=== PATIENT | male | born 1965 | race Caucasian/White ===

== ENCOUNTER 2018-04-05 08:31 | Inpatient (IN) | payer SELFPAY ==
[2018-04-05] VITALS (7 sets, daily range): BP systolic 134–188; BP diastolic 56–122
[~2018-04-05] VITALS: Ht 167.6 cm; Wt 131.5 kg
--- NOTE | 2018-04-05 08:51 | PHYS DOC ---
Adult General Chief Complaint Chief Complaint: HEADACHE HPI HPI Patient is a 52 year old male presents the ED complaining of headache 2 months. States he has had a constant headache the left side of his head for the last 2 months. States he did taking Excedrin Migraine at home without relief. Patient states he has no past medical history but has been told he has high blood pressure. States he attributes it to white coat syndrome. Patient is a half a pack-a-day smoker. Describes the pain as sharp. Rates the pain as 8 out of 10. Associated symptoms of chest tightness lasting minutes over the last couple of weeks. No chest pain today. Denies worst headache of life, fever, neck pain, photophobia, shortness of breath or nausea/vomiting. Review of Systems Review of Systems Constitutional: Denies fever or chills [] Eyes: Denies change in visual acuity, redness, or eye pain [] HENT: Denies nasal congestion or sore throat [] Respiratory: Denies cough or shortness of breath [] Cardiovascular: No additional information not addressed in HPI [] GI: Denies abdominal pain, nausea, vomiting, bloody stools or diarrhea [] : Denies dysuria or hematuria [] Musculoskeletal: Denies back pain or joint pain [] Integument: Denies rash or skin lesions [] Neurologic: Complains of headache. Denies focal weakness or sensory changes [] All other systems were reviewed and found to be within normal limits, except as documented in this note. Current Medications Current Medications Current Medications Medications (Trade) Dose Ordered Sig/[facility] Start Time Stop Time Status Last Admin Dose Admin Morphine Sulfate (Morphine Sulfate) 2 mg 1X ONCE 04/05/18 10:00 04/05/18 10:49 DC 04/05/18 10:50 2 MG Ondansetron HCl (Zofran) 4 mg 1X ONCE 04/05/18 10:00 04/05/18 10:49 DC 04/05/18 10:50 4 MG Physical Exam Physical Exam Constitutional: Well developed, well nourished, no acute distress, non-toxic appearance. [] HENT: Normocephalic, atraumatic, bilateral external ears normal, oropharynx moist, no oral exudates, nose normal. [] Eyes: PERRLA, EOMI, conjunctiva normal, no discharge. [] Neck: Normal range of motion, no tenderness, supple, no stridor. [] Cardiovascular:Heart rate regular rhythm, no murmur [] Lungs & Thorax: Bilateral breath sounds clear to auscultation [] Abdomen: Bowel sounds normal, soft, no tenderness, no masses, no pulsatile masses. [] Skin: Warm, dry, no erythema, no rash. [] Back: No tenderness, no CVA tenderness. [] Extremities: No tenderness, no cyanosis, no clubbing, ROM intact, no edema. [] Neurologic: Alert and oriented X 3, normal motor function, normal sensory function, no focal deficits noted. [] Psychologic: Affect normal, judgement normal, mood normal. [] Current Patient Data Vital Signs Vital Signs Date Time Temp Pulse Resp B/P (MAP) Pulse Ox O2 Delivery O2 Flow Rate FiO2 04/05/18 09:54 84 16 95 04/05/18 08:42 98.6 207/117 (147) Room Air 98.6 Lab Values Laboratory Tests Test 04/05/18 09:05 04/05/18 09:20 04/05/18 09:25 White Blood Count 9.2 x10^3/uL (4.0-11.0) Red Blood Count 4.52 x10^6/uL (4.30-5.70) Hemoglobin 14.8 g/dL (13.0-17.5) Hematocrit 42.2 % (39.0-53.0) Mean Corpuscular Volume 93 fL (79-100) Mean Corpuscular Hemoglobin 33 pg (25-35) Mean Corpuscular Hemoglobin Concent 35 g/dL (31-37) Red Cell Distribution Width 13.4 % (11.5-14.5) Platelet Count 239 x10^3/uL (140-400) Neutrophils (%) (Auto) 60 % (31-73) Lymphocytes (%) (Auto) 29 % (24-48) Monocytes (%) (Auto) 8 % (0-9) Eosinophils (%) (Auto) 2 % (0-3) Basophils (%) (Auto) 1 % (0-3) Neutrophils # (Auto) 5.5 x10^3uL (1.8-7.7) Lymphocytes # (Auto) 2.7 x10^3/uL (1.0-4.8) Monocytes # (Auto) 0.7 x10^3/uL (0.0-1.1) Eosinophils # (Auto) 0.2 x10^3/uL (0.0-0.7) Basophils # (Auto) 0.1 x10^3/uL (0.0-0.2) Sodium Level 137 mmol/L (136-145) Potassium Level 4.2 mmol/L (3.5-5.1) Chloride Level 105 mmol/L (98-107) Carbon Dioxide Level 27 mmol/L (21-32) Anion Gap 5 (6-14) L Blood Urea Nitrogen 15 mg/dL (8-26) Creatinine 0.9 mg/dL (0.7-1.3) Estimated GFR (Cockcroft-Gault) 89.0 BUN/Creatinine Ratio 17 (6-20) Glucose Level 101 mg/dL (70-99) H Calcium Level 8.3 mg/dL (8.5-10.1) L Total Bilirubin 0.4 mg/dL (0.2-1.0) Aspartate Amino Transferase (AST) 22 U/L (15-37) Alanine Aminotransferase (ALT) 36 U/L (16-63) Alkaline Phosphatase 79 U/L (46-116) Troponin I Quantitative < 0.017 ng/mL (0.000-0.055) Total Protein 7.1 g/dL (6.4-8.2) Albumin 3.4 g/dL (3.4-5.0) Albumin/Globulin Ratio 0.9 (1.0-1.7) L Urine Opiates Screen Neg (NEG) Urine Methadone Screen Neg (NEG) Urine Barbiturates Neg (NEG) Urine Phencyclidine Screen Neg (NEG) Urine Amphetamine/Methamphetamine Neg (NEG) Urine Benzodiazepines Screen Neg (NEG) Urine Cocaine Screen Neg (NEG) Urine Cannabinoids Screen Neg (NEG) Urine Ethyl Alcohol Neg (NEG) Urine Collection Type Unknown Urine Color Yellow Urine Clarity Clear Urine pH 7.0 Urine Specific [place] 1.025 Urine Protein Negative mg/dL (NEG-TRACE) Urine Glucose (UA) Negative mg/dL (NEG) Urine Ketones (Stick) Negative mg/dL (NEG) Urine Blood Negative (NEG) Urine Nitrite Negative (NEG) Urine Bilirubin Negative (NEG) Urine Urobilinogen Dipstick 1.0 mg/dL (0.2 mg/dL) Urine Leukocyte Esterase Trace (NEG) Urine RBC 1-2 /HPF (0-2) Urine WBC 1-4 /HPF (0-4) Urine Squamous Epithelial Cells Mod /LPF Urine Bacteria Few /HPF (0-FEW) Urine Mucus Marked /LPF Laboratory Tests 04/05/18 09:05 Laboratory Tests 04/05/18 09:05 EKG EKG []EKG shows NSR at 89 BPM. No STEMI. Radiology/Procedures Radiology/Procedures []PROCEDURE: CT HEAD WO CONTRAST CT of the head without contrast, 04/05/2018: HISTORY: Headache The ventricles are within normal limits in size. There is no shift of the midline structures. There is no evidence of acute intracranial hemorrhage or mass effect. Mild mucosal thickening is noted in the left maxillary sinus. No free fluid is evident in the paranasal sinuses. There is partial opacification of the left mastoid air cells, presumably on an inflammatory basis. IMPRESSION: 1. No acute intracranial abnormality is detected. 2. Evidence of left maxillary and mastoid sinusitis. Course & Med Decision Making Course & Med Decision Making Pertinent Labs and Imaging studies reviewed. (See chart for details) Patients BP is 200s over 100s in the ED. Patient does not take any BP medications. Headache possibly due to uncontrolled HTN. States episodes over the last week of chest tightness. No symptoms at this time. []Discussed case with hospitalist, Dr. Logan. Agrees to admission and further management of patient. Patient stable for admission. Staff Physician Addendum: I was working in the ER during the course of this patient's visit. I was available for consultation as needed, but I was not directly involved in the care of this patient. Dragon Disclaimer Dragon Disclaimer This electronic medical record was generated, in whole or in part, using a voice recognition dictation system. Departure Departure Impression: Primary Impression: Hypertensive urgency Additional Impressions: Headache Chest tightness Disposition: ADMITTED INPATIENT Admitting Physician: Xie. Hernández Condition: STABLE Scripts Aspirin (ASPIRIN EC) 81 Mg Tablet. 81 MG PO DAILYWBKFT for 30 Days, #30 TAB.SR Prov: CHANA LOGAN MD 04/07/18 Lisinopril (LISINOPRIL) 40 Mg Tablet 40 MG PO DAILY for 30 Days, #30 TAB Prov: CHANA LOGAN MD 04/07/18 Amlodipine Besylate (AMLODIPINE BESYLATE) 10 Mg Tablet 10 MG PO DAILY for 30 Days, #30 TAB Prov: CHANA LOGAN MD 04/07/18 Hydralazine Hcl (HYDRALAZINE HCL) 50 Mg Tablet 50 MG PO TID for 30 Days, #90 TAB Prov: CHANA LOGAN MD 04/07/18 Problem Qualifiers DENY GOMEZ Apr 05, 2018 08:50 MICK PATTON MD Apr 07, 2018 20:50
--- NOTE | 2018-04-05 09:00 | EKG ---
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
[2018-04-05 09:15] LABS: BASO # 0.1 x10^3/uL (0.0-0.2); BASO % 1 % (0-3); EOS # 0.2 x10^3/uL (0.0-0.7); EOS % 2 % (0-3); HEMATOCRIT 42.2 % (39.0-53.0); HEMOGLOBIN 14.8 g/dL (13.0-17.5); LYMPH # 2.7 x10^3/uL (1.0-4.8); LYMPH % 29 % (24-48); MEAN CORPUSCULAR HEMOGLOBIN 33 pg (25-35); MEAN CORPUSCULAR HGB CONC 35 g/dL (31-37); MEAN CORPUSCULAR VOLUME 93 fL (79-100); MONO # 0.7 x10^3/uL (0.0-1.1); MONO % 8 % (0-9); NEUT # 5.5 x10^3uL (1.8-7.7); NEUT % 60 % (31-73); PLATELET COUNT 239 x10^3/uL (140-400); RED BLOOD COUNT 4.52 x10^6/uL (4.30-5.70); RED CELL DISTRIBUTION WIDTH 13.4 % (11.5-14.5); WHITE BLOOD COUNT 9.2 x10^3/uL (4.0-11.0)
--- NOTE | 2018-04-05 09:27 | RAD ---
Portable chest, 04/05/2018: HISTORY: Shortness of breath The heart appears to be within normal limits in size for the AP technique. There is mild tortuosity of the thoracic aorta. The pulmonary vascularity is normal. No pulmonary infiltrate is seen. There is no evidence of pleural fluid. IMPRESSION: No acute cardiopulmonary abnormality is detected. Electronically signed by: Radu Epps MD (04/05/2018 9:24 AM) [facility]
[2018-04-05 09:31] LABS: CALCIUM 8.3 mg/dL (8.5-10.1); CREATININE 0.9 mg/dL (0.7-1.3); POTASSIUM 4.2 mmol/L (3.5-5.1)
[2018-04-05 09:36] LABS: BILIRUBIN,URINE NEGATIVE (NEG); CLARITY,URINE CLEAR; COLOR,URINE YELLOW; NITRITE,URINE NEGATIVE (NEG); PROTEIN,URINE NEGATIVE (NEG-TRACE)
[2018-04-05 09:36] LABS: ALBUMIN 3.4 g/dL (3.4-5.0); ALBUMIN/GLOBULIN RATIO 0.9 (1.0-1.7); TOTAL BILIRUBIN 0.4 mg/dL (0.2-1.0); TOTAL PROTEIN 7.1 g/dL (6.4-8.2)
--- NOTE | 2018-04-05 09:37 | RAD ---
CT of the head without contrast, 04/05/2018: HISTORY: Headache The ventricles are within normal limits in size. There is no shift of the midline structures. There is no evidence of acute intracranial hemorrhage or mass effect. Mild mucosal thickening is noted in the left maxillary sinus. No free fluid is evident in the paranasal sinuses. There is partial opacification of the left mastoid air cells, presumably on an inflammatory basis. IMPRESSION: 1. No acute intracranial abnormality is detected. 2. Evidence of left maxillary and mastoid sinusitis. Electronically signed by: Radu Epps MD (04/05/2018 9:33 AM) [facility]
[2018-04-05 09:44] LABS: SQUAMOUS EPITHELIAL CELL,UR MOD /LPF
[2018-04-05 09:46] LABS: BACTERIA,URINE FEW /HPF (0-FEW)
[2018-04-05] MEDS ORDERED: MORPHINE SULFATE 2 MG/ML VIAL. IV ONE (10:00)
[2018-04-05] MEDS ORDERED: ONDANSETRON PF 4 MG/2 ML VIAL. IV ONE (10:00)
[2018-04-05] MEDS ORDERED: ACETAMINOPHEN 325 MG TABLET. PO PRN ×2 (10:15→14:45)
[2018-04-05] MEDS ORDERED: ONDANSETRON PF 4 MG/2 ML VIAL. IV PRN ×2 (10:15→14:45)
[2018-04-05] MEDS ORDERED: MORPHINE SULFATE 2 MG/ML VIAL. IV PRN (10:15)
[2018-04-05] MEDS ORDERED: LABETALOL 20 MG/4 ML DISP.SYRIN. IVP ONE (11:00)
--- NOTE | 2018-04-05 14:38 | PDOC1 ---
History and Physical Date of Admission Date of Admission 04/05/18 Identification/Chief Complaint Chief Complaint headache, chest pain Source Source: Chart review, Patient History of Present Illness History of Present Illness Patient is a 52 year old male presents the ED complaining of headache 2 months. 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 He said the headache is only one spot on head, better with shower. The headache today feels like tightness. . States he did taking Excedrin Migraine at home without relief. PT HAS HTN history, but not following PCP and not taking HTN meds. he also has chest pain today during his work, substernal, tightness, with some sob, no N/V or diaphoresis, constant, 4/10. now pain free seen in ER. no tenderness. Patient is a half a pack-a-day smoker. EKG ok, trop neg. BP >200/110 in ER. Past Medical History Cardiovascular: HTN Past Surgical History Past Surgical History: No pertinent history Family History Family History STROKE Current Problem List Problem List Problems Medical Problems: (1) Headache Status: Acute (2) Hypertensive urgency Status: Acute Current Medications Current Medications Current Medications Medications (Trade) Dose Ordered Sig/Kaela Start Time Stop Time Status Last Admin Dose Admin Acetaminophen (Tylenol) 650 mg PRN Q4HRS PRN 04/05/18 10:15 04/06/18 10:14 Labetalol HCl (Normodyne Iv Push) 10 mg 1X ONCE 04/05/18 11:00 04/05/18 11:01 DC 04/05/18 11:19 10 MG Morphine Sulfate (Morphine Sulfate) 2 mg PRN Q2HR PRN 04/05/18 10:15 04/06/18 10:14 Ondansetron HCl (Zofran) 4 mg PRN Q8HRS PRN 04/05/18 10:15 04/06/18 10:14 Allergies Allergies Allergies Coded Allergies Type Severity Reaction Last Updated Verified Penicillins Allergy Mild rash 04/05/18 Yes ROS Review of System CONSTITUTIONAL: No fever or chills EYES: No recent changes SKIN: No rash or itching CARDIOVASCULAR: No chest pain, syncope, palpitations, or edema RESPIRATORY: No SOB or cough GASTROINTESTINAL: No nausea, vomiting or abdominal pain NEUROLOGICAL: No headaches or weakness ENDOCRINE: No cold or heat intolerance GENITOURINARY: No urgency or frequency of urination MUSCULOSKELETAL: No back pain or joint pain LYMPHATICS: No enlarged lymph nodes PSYCHIATRIC: No anxiety or depression Physical Exam Physical Exam GEN.: No apparent distress. Alert and oriented. HEENT: Head is normocephalic, atraumatic NECK: Supple. LUNGS: Clear to auscultation. HEART: RRR, S1, S2 present. Peripheral pulses intact ABDOMEN: Soft, nontender. Positive bowel sounds. EXTREMITIES: Without any cyanosis. NEUROLOGIC: Normal speech, normal tone PSYCHIATRIC: Normal affect, normal mood. SKIN: No ulcerations Vitals Vitals Vital Signs Date Time Temp Pulse Resp B/P (MAP) Pulse Ox O2 Delivery O2 Flow Rate FiO2 04/05/18 13:44 78 20 154/102 (119) Room Air 04/05/18 12:08 97.7 95 97.7 Labs Labs Laboratory Tests Test 04/05/18 09:05 04/05/18 09:25 White Blood Count 9.2 x10^3/uL (4.0-11.0) Red Blood Count 4.52 x10^6/uL (4.30-5.70) Hemoglobin 14.8 g/dL (13.0-17.5) Hematocrit 42.2 % (39.0-53.0) Mean Corpuscular Volume 93 fL (79-100) Mean Corpuscular Hemoglobin 33 pg (25-35) Mean Corpuscular Hemoglobin Concent 35 g/dL (31-37) Red Cell Distribution Width 13.4 % (11.5-14.5) Platelet Count 239 x10^3/uL (140-400) Neutrophils (%) (Auto) 60 % (31-73) Lymphocytes (%) (Auto) 29 % (24-48) Monocytes (%) (Auto) 8 % (0-9) Eosinophils (%) (Auto) 2 % (0-3) Basophils (%) (Auto) 1 % (0-3) Neutrophils # (Auto) 5.5 x10^3uL (1.8-7.7) Lymphocytes # (Auto) 2.7 x10^3/uL (1.0-4.8) Monocytes # (Auto) 0.7 x10^3/uL (0.0-1.1) Eosinophils # (Auto) 0.2 x10^3/uL (0.0-0.7) Basophils # (Auto) 0.1 x10^3/uL (0.0-0.2) Sodium Level 137 mmol/L (136-145) Potassium Level 4.2 mmol/L (3.5-5.1) Chloride Level 105 mmol/L (98-107) Carbon Dioxide Level 27 mmol/L (21-32) Anion Gap 5 (6-14) Blood Urea Nitrogen 15 mg/dL (8-26) Creatinine 0.9 mg/dL (0.7-1.3) Estimated GFR (Cockcroft-Gault) 89.0 BUN/Creatinine Ratio 17 (6-20) Glucose Level 101 mg/dL (70-99) Calcium Level 8.3 mg/dL (8.5-10.1) Total Bilirubin 0.4 mg/dL (0.2-1.0) Aspartate Amino Transf (AST/SGOT) 22 U/L (15-37) Alanine Aminotransferase (ALT/SGPT) 36 U/L (16-63) Alkaline Phosphatase 79 U/L (46-116) Troponin I Quantitative < 0.017 ng/mL (0.000-0.055) Total Protein 7.1 g/dL (6.4-8.2) Albumin 3.4 g/dL (3.4-5.0) Albumin/Globulin Ratio 0.9 (1.0-1.7) Urine Collection Type Unknown Urine Color Yellow Urine Clarity Clear Urine pH 7.0 Urine Specific [place] 1.025 Urine Protein Negative mg/dL (NEG-TRACE) Urine Glucose (UA) Negative mg/dL (NEG) Urine Ketones (Stick) Negative mg/dL (NEG) Urine Blood Negative (NEG) Urine Nitrite Negative (NEG) Urine Bilirubin Negative (NEG) Urine Urobilinogen Dipstick 1.0 mg/dL (0.2 mg/dL) Urine Leukocyte Esterase Trace (NEG) Urine RBC 1-2 /HPF (0-2) Urine WBC 1-4 /HPF (0-4) Urine Squamous Epithelial Cells Mod /LPF Urine Bacteria Few /HPF (0-FEW) Urine Mucus Marked /LPF Laboratory Tests Test 04/05/18 09:05 04/05/18 09:25 White Blood Count 9.2 x10^3/uL (4.0-11.0) Red Blood Count 4.52 x10^6/uL (4.30-5.70) Hemoglobin 14.8 g/dL (13.0-17.5) Hematocrit 42.2 % (39.0-53.0) Mean Corpuscular Volume 93 fL (79-100) Mean Corpuscular Hemoglobin 33 pg (25-35) Mean Corpuscular Hemoglobin Concent 35 g/dL (31-37) Red Cell Distribution Width 13.4 % (11.5-14.5) Platelet Count 239 x10^3/uL (140-400) Neutrophils (%) (Auto) 60 % (31-73) Lymphocytes (%) (Auto) 29 % (24-48) Monocytes (%) (Auto) 8 % (0-9) Eosinophils (%) (Auto) 2 % (0-3) Basophils (%) (Auto) 1 % (0-3) Neutrophils # (Auto) 5.5 x10^3uL (1.8-7.7) Lymphocytes # (Auto) 2.7 x10^3/uL (1.0-4.8) Monocytes # (Auto) 0.7 x10^3/uL (0.0-1.1) Eosinophils # (Auto) 0.2 x10^3/uL (0.0-0.7) Basophils # (Auto) 0.1 x10^3/uL (0.0-0.2) Sodium Level 137 mmol/L (136-145) Potassium Level 4.2 mmol/L (3.5-5.1) Chloride Level 105 mmol/L (98-107) Carbon Dioxide Level 27 mmol/L (21-32) Anion Gap 5 (6-14) Blood Urea Nitrogen 15 mg/dL (8-26) Creatinine 0.9 mg/dL (0.7-1.3) Estimated GFR (Cockcroft-Gault) 89.0 BUN/Creatinine Ratio 17 (6-20) Glucose Level 101 mg/dL (70-99) Calcium Level 8.3 mg/dL (8.5-10.1) Total Bilirubin 0.4 mg/dL (0.2-1.0) Aspartate Amino Transf (AST/SGOT) 22 U/L (15-37) Alanine Aminotransferase (ALT/SGPT) 36 U/L (16-63) Alkaline Phosphatase 79 U/L (46-116) Troponin I Quantitative < 0.017 ng/mL (0.000-0.055) Total Protein 7.1 g/dL (6.4-8.2) Albumin 3.4 g/dL (3.4-5.0) Albumin/Globulin Ratio 0.9 (1.0-1.7) Urine Collection Type Unknown Urine Color Yellow Urine Clarity Clear Urine pH 7.0 Urine Specific [place] 1.025 Urine Protein Negative mg/dL (NEG-TRACE) Urine Glucose (UA) Negative mg/dL (NEG) Urine Ketones (Stick) Negative mg/dL (NEG) Urine Blood Negative (NEG) Urine Nitrite Negative (NEG) Urine Bilirubin Negative (NEG) Urine Urobilinogen Dipstick 1.0 mg/dL (0.2 mg/dL) Urine Leukocyte Esterase Trace (NEG) Urine RBC 1-2 /HPF (0-2) Urine WBC 1-4 /HPF (0-4) Urine Squamous Epithelial Cells Mod /LPF Urine Bacteria Few /HPF (0-FEW) Urine Mucus Marked /LPF VTE Prophylaxis Ordered VTE Prophylaxis Devices: Yes VTE Pharmacological Prophylaxi: Yes Assessment/Plan Assessment/Plan Headache HTN urgency tobaccoism plan: head ct neg card consult cycle CE, add amlodipine, lisinopril labetolol prn check lipid panel, TSH , echo pt not interested in nicotine patch, willing to try to quit smoking dvt ppx CHANA LOGAN MD Apr 05, 2018 14:38
[2018-04-05] MEDS ORDERED: LABETALOL 20 MG/4 ML DISP.SYRIN. IVP PRN ×2 (14:45→15:45)
[2018-04-05] MEDS ORDERED: DOCUSATE SODIUM 100 MG CAPSULE. PO PRN (14:45)
--- NOTE | 2018-04-05 15:02 | PDOC2 ---
LORRIE HUFFMAN DIMENSIONAL INTEGRATION ENGINEER 04/05/18 1502: CARDIAC CONSULT DATE OF CONSULT Date of Consult DATE: 04/05/18 TIME: 14:55 REASON FOR CONSULT Reason for Consult: Chest pain REFERRING PHYSICIAN Referring Physician: Edwina SOURCE Source: Chart review, Patient HISTORY OF PRESENT ILLNESS HISTORY OF PRESENT ILLNESS This is a pleasant 52 yo male admitted for complains of chest pain and GIRALDO. Reports that he was having some nausea and midchest pressure last Tuesday. And again this happened today on his way to work. Reports he was driving when he felt mid chest pressure and felt SOA and like he could not breath deep. While at work trying to write his name on the board at work, he started having diaphoresis and GIRALDO. He said it felt like tightening around his forehead, dull achy. He has been having this GIRALDO on and off almost everyday and sometimes get relieved by shower with just that water pressure to the top of his head. There was no associated visual or auditory changes nor unilateral weakness or dysarthria but while at work when he felt diaphoretic he felt weird like confuse at some point and could not answer the question being asked but understood it. Upon admission he was then noted with high BP. He has hx of high BP as well as possible white coat syndrome. He was given norvasc remotely but decided that he does not need it. He also suffers from insomnia just now transitioning to day shift but does have episodes of PND sleeping about 2-3 hours at a time, feels tired most of the day prompting extra caffeinated beverage consumption. He does take advil for his GIRALDO as needed twice a day. Denies any frequent heartburn, anxiety, depression, falls ,injury, DM2, CAD, arrhythmias or VTE. No prior hx of CVA, TIA nor seizures, aneurysm. He does not exercise and does consume significant amount of processed food. PAST MEDICAL HISTORY Cardiovascular: HTN Pulmonary: No pertinent hx CENTRAL NERVOUS SYSTEM: Other (No pertinent history) GI: GERD Heme/Onc: No pertinent hx Hepatobiliary: No pertinent hx Psych: No pertinent hx Musculoskeletal: Osteoarthritis, Other (left MCL injury without surgery) Rheumatologic: No pertinent hx Infectious disease: No pertinent hx ENT: No pertinent hx Renal/: No pertinent hx Endocrine: No pertinent hx Dermatology: No pertinent hx PAST SURGICAL HISTORY Past Surgical History: Other (right thigh cyst removal. ) FAMILY HISTORY Family History: Diabetes (mother), Stroke (grandparents) SOCIAL HISTORY Smoke: <1 pack per day (>25yrs) ALCOHOL: none Drugs: None Lives: Alone CURRENT MEDICATIONS CURRENT MEDICATIONS Current Medications Medications (Trade) Dose Ordered Sig/Kaela Route PRN Reason Start Time Stop Time Status Last Admin Dose Admin Morphine Sulfate (Morphine Sulfate) 2 mg 1X ONCE IV 04/05/18 10:00 04/05/18 10:49 DC 04/05/18 10:50 Ondansetron HCl (Zofran) 4 mg 1X ONCE IV 04/05/18 10:00 04/05/18 10:49 DC 04/05/18 10:50 Labetalol HCl (Normodyne Iv Push) 10 mg 1X ONCE IVP 04/05/18 11:00 04/05/18 11:01 DC 04/05/18 11:19 ALLERGIES ALLERGIES: Coded Allergies: Penicillins (Verified Allergy, Mild, rash, 04/05/18) ROS Review of System 14 point ROS evaluated with pertinent positives noted per HPI PHYSICAL EXAM General: Alert, Oriented X3, Cooperative, No acute distress HEENT: Atraumatic, Mucous membr. moist/pink Lungs: Clear to auscultation, Normal air movement Heart: Regular rate (SR), Normal S1, Normal S2, No murmurs Abdomen: Soft, No tenderness, Other (obese) Extremities: No cyanosis, Other (1+ bilateral LE pitting edema) Skin: No breakdown, No significant lesion Neuro: Normal speech, Sensation intact Psych/Mental Status: Mental status NL, Mood NL MUSCULOSKELETAL: Osteoarthritic changes both hands VITALS VITALS Vital Signs Date Time Temp Pulse Resp B/P (MAP) Pulse Ox O2 Delivery O2 Flow Rate FiO2 04/05/18 13:44 78 20 154/102 (119) Room Air 04/05/18 12:08 97.7 95 97.7 LABS Lab: Laboratory Tests Test 04/05/18 09:05 04/05/18 09:25 White Blood Count 9.2 x10^3/uL (4.0-11.0) Red Blood Count 4.52 x10^6/uL (4.30-5.70) Hemoglobin 14.8 g/dL (13.0-17.5) Hematocrit 42.2 % (39.0-53.0) Mean Corpuscular Volume 93 fL (79-100) Mean Corpuscular Hemoglobin 33 pg (25-35) Mean Corpuscular Hemoglobin Concent 35 g/dL (31-37) Red Cell Distribution Width 13.4 % (11.5-14.5) Platelet Count 239 x10^3/uL (140-400) Neutrophils (%) (Auto) 60 % (31-73) Lymphocytes (%) (Auto) 29 % (24-48) Monocytes (%) (Auto) 8 % (0-9) Eosinophils (%) (Auto) 2 % (0-3) Basophils (%) (Auto) 1 % (0-3) Neutrophils # (Auto) 5.5 x10^3uL (1.8-7.7) Lymphocytes # (Auto) 2.7 x10^3/uL (1.0-4.8) Monocytes # (Auto) 0.7 x10^3/uL (0.0-1.1) Eosinophils # (Auto) 0.2 x10^3/uL (0.0-0.7) Basophils # (Auto) 0.1 x10^3/uL (0.0-0.2) Sodium Level 137 mmol/L (136-145) Potassium Level 4.2 mmol/L (3.5-5.1) Chloride Level 105 mmol/L (98-107) Carbon Dioxide Level 27 mmol/L (21-32) Anion Gap 5 (6-14) Blood Urea Nitrogen 15 mg/dL (8-26) Creatinine 0.9 mg/dL (0.7-1.3) Estimated GFR (Cockcroft-Gault) 89.0 BUN/Creatinine Ratio 17 (6-20) Glucose Level 101 mg/dL (70-99) Calcium Level 8.3 mg/dL (8.5-10.1) Total Bilirubin 0.4 mg/dL (0.2-1.0) Aspartate Amino Transf (AST/SGOT) 22 U/L (15-37) Alanine Aminotransferase (ALT/SGPT) 36 U/L (16-63) Alkaline Phosphatase 79 U/L (46-116) Troponin I Quantitative < 0.017 ng/mL (0.000-0.055) Total Protein 7.1 g/dL (6.4-8.2) Albumin 3.4 g/dL (3.4-5.0) Albumin/Globulin Ratio 0.9 (1.0-1.7) Urine Collection Type Unknown Urine Color Yellow Urine Clarity Clear Urine pH 7.0 Urine Specific [place] 1.025 Urine Protein Negative mg/dL (NEG-TRACE) Urine Glucose (UA) Negative mg/dL (NEG) Urine Ketones (Stick) Negative mg/dL (NEG) Urine Blood Negative (NEG) Urine Nitrite Negative (NEG) Urine Bilirubin Negative (NEG) Urine Urobilinogen Dipstick 1.0 mg/dL (0.2 mg/dL) Urine Leukocyte Esterase Trace (NEG) Urine RBC 1-2 /HPF (0-2) Urine WBC 1-4 /HPF (0-4) Urine Squamous Epithelial Cells Mod /LPF Urine Bacteria Few /HPF (0-FEW) Urine Mucus Marked /LPF ASSESSMENT/PLAN ASSESSMENT/PLAN 1. GIRALDO: multifactorial with sinusitis, GWENDOLYN, and HTN. CT negative for acute changes. Defer to PCP 2. Hypertensive encephalopathy 3. Chest pain: initial trop nml, EKG SR with LVH 4. Accelerated HTN 5. Tobaccoism 6. Morbid obesity: BMI 46.8 7. Suspect underlying GWENDOLYN Recommendations 1. Lipids, TSH, TTE 2. Ischemic w/u tomorrow likely MPI pending troponin trend. 3. Smoking cessation 4. Suspect GWENDOLYN, will need outpt w/u 5. Dietitian consult, wt loss, decrease caffeine intake, dash diet 6. Agree with norvasc and lisinopril. Labetolol IV PRN. MEREDITH RIZO MD 04/06/18 0724: CARDIAC CONSULT ASSESSMENT/PLAN ASSESSMENT/PLAN Patient seen and examined 04/05/18. Agree with AIR BATTLE MANAGER's assessment and plan. Chest pain with atypical features and most probably secondary to uncontrolled hypertension. Check 2-D echo to assess LV systolic function and Lexiscan nuclear stress test to rule out ischemia. We will titrate oral antihypertensives for better blood pressure control. Headache most probably secondary to accelerated hypertension, treat per IM Thank you for your consultation LORRIE HUFFMAN APRN Apr 05, 2018 15:02 MEREDITH RIZO MD Apr 06, 2018 07:24
[2018-04-05] MEDS: LISINOPRIL 20 MG TABLET PO SCH (15:35)
[2018-04-05] MEDS: amLODIPine BESYLATE 10 MG TABLET PO SCH (15:35)
[2018-04-05] MEDS: ENOXAPARIN 40 MG/0.4 ML SYRINGE. SQ SCH (15:36)
[2018-04-05] MEDS: traMADol 50 MG TABLET PO PRN (15:40)
[2018-04-05] MEDS: ASPIRIN ENTERIC COATED 81 MG TABLET.DR. PO SCH (17:43)
[2018-04-05 18:33] LABS: BARBITURATES NEG (NEG); BENZODIAZEPINES NEG (NEG); CANNABINOIDS NEG (NEG); COCAINE NEG (NEG); METHADONE NEG (NEG); OPIATES NEG (NEG); PHENCYCLIDINE NEG (NEG)
[2018-04-05 18:34] LABS: AMPHETAMINE/METHAMPHETAMINE NEG (NEG)
[2018-04-06 03:31] VITALS: BP 147/97
[2018-04-06 04:22] LABS: BASO # 0.1 x10^3/uL (0.0-0.2); BASO % 1 % (0-3); EOS # 0.2 x10^3/uL (0.0-0.7); EOS % 2 % (0-3); HEMOGLOBIN 14.4 g/dL (13.0-17.5); LYMPH # 3.4 x10^3/uL (1.0-4.8); LYMPH % 34 % (24-48); MEAN CORPUSCULAR HEMOGLOBIN 33 pg (25-35); MEAN CORPUSCULAR HGB CONC 35 g/dL (31-37); MEAN CORPUSCULAR VOLUME 95 fL (79-100); MONO # 0.7 x10^3/uL (0.0-1.1); MONO % 7 % (0-9); NEUT # 5.6 x10^3uL (1.8-7.7); NEUT % 56 % (31-73); PLATELET COUNT 219 x10^3/uL (140-400); RED BLOOD COUNT 4.34 x10^6/uL (4.30-5.70); RED CELL DISTRIBUTION WIDTH 13.5 % (11.5-14.5)
[2018-04-06 04:51] LABS: ALBUMIN 3.2 g/dL (3.4-5.0); ALBUMIN/GLOBULIN RATIO 0.8 (1.0-1.7); CALCIUM 8.3 mg/dL (8.5-10.1); CREATININE 0.9 mg/dL (0.7-1.3); TOTAL BILIRUBIN 0.4 mg/dL (0.2-1.0); TOTAL PROTEIN 7.2 g/dL (6.4-8.2)
[2018-04-06 05:14] LABS: CHOLESTEROL/HDL RATIO 4.6
[2018-04-06 07:38] VITALS: BP 180/116
[2018-04-06] MEDS: amLODIPine BESYLATE 10 MG TABLET PO SCH (08:11)
[2018-04-06] MEDS: LISINOPRIL 20 MG TABLET PO SCH (08:11)
--- NOTE | 2018-04-06 10:26 | CARD ---
MR#: [id number] Date of Study: 04/06/2018 Ordering Physician: CHANA LOGAN, Referring Physician: CHANA LOGAN Tech: Yesika Rosado RDCS APPROVED REPORT EXAM: Two-dimensional and M-mode echocardiogram with Doppler and color Doppler. Other Information Quality : Good INDICATION Chest Pain 2D DIMENSIONS RVDd2.8 (2.9-3.5cm)Left Atrium(2D)3.7 (1.6-4.0cm) IVSd1.6 (0.7-1.1cm)Aortic Root(2D)3.0 (2.0-3.7cm) LVDd5.0 (3.9-5.9cm)LVOT Diameter2.4 (1.8-2.4cm) PWd1.3 (0.7-1.1cm)LVDs4.0 (2.5-4.0cm) FS (%) 20.9 %SV51.0 ml LVEF(%)45.0 (>50%) Aortic Valve AoV Peak Robert.132.0cm/sAoV VTI26.3cm AO Peak GR.7.0mmHgLVOT Peak Robert.94.1cm/s LVOT VTI 19.23cmAO Mean GR.4mmHg ILA (VMAX)3.76ue2FLS (VTI)3.43cm2 Mitral Valve MV E Hjlomnuu50.2cm/sMV DECEL [id number] MV A Twopiogq22.9cm/sMV [id number] E/A Ratio1.0MVA (PHT)3.00cm2 TDI E/Lateral E'10.6E/Medial E'14.4 Pulmonary Vein S1 Hvfioksg13.5cm/sD2 Zxqgxtgm14.0cm/s LEFT VENTRICLE The left ventricle is normal size. There is mild concentric left ventricular hypertrophy. Left ventri franklyn systolic function is normal. The Ejection Fraction is 55%. There is normal LV segmental wall ty on. RIGHT VENTRICLE The right ventricle is normal size. The right ventricular systolic function is normal. ATRIA The left atrium size is normal. The right atrium size is normal. The interatrial septum is intact wit h no evidence for an atrial septal defect or patent foramen ovale as noted on 2-D or Doppler imaging. AORTIC VALVE The aortic valve is normal in structure and function. Doppler and Color Flow revealed no significant aortic regurgitation. There is no significant aortic valvular stenosis. MITRAL VALVE The mitral valve is normal in structure and function. There is no evidence of mitral valve prolapse. There is no mitral valve stenosis. Doppler and Color-flow revealed trace to mild mitral regurgitation . TRICUSPID VALVE The tricuspid valve is normal in structure and function. Doppler and Color Flow revealed no tricuspid valve regurgitation noted. There is no tricuspid valve stenosis. PULMONIC VALVE The pulmonic valve is not well visualized. Doppler and Color Flow revealed no pulmonic valvular regur gitation. There is no pulmonic valvular stenosis. GREAT VESSELS The aortic root is normal in size. The ascending aorta is mildly dilated at 3.6 cm. The IVC is normal in size and collapses >50% with inspiration. PERICARDIAL EFFUSION There is no evidence of significant pericardial effusion. Critical Notification Critical Value: No <Conclusion> Left ventricle systolic function is normal. The Ejection Fraction is 55%. There is normal LV segmental wall motion. Trace to mild mitral regurgitation. There is no evidence of significant pericardial effusion. Signed by : Derrick Sharif, Electronically Approved : 04/06/2018 10:26:00
[2018-04-06] MEDS: hydrALAZINE 25 MG TABLET PO SCH ×3 (10:51→20:42)
--- NOTE | 2018-04-06 10:52 | PDOC ---
MARTHAJAMI Brent SENIOR REGULATORY AFFAIRS SPECIALIST 04/06/18 1052: CARDIO Progress Notes Date and Time Date of Service 04/06/2018 Time of Evaluation 1044 Subjective Subjective: No Chest Pain, No shortness of breath, No Palpitations, No Dizziness, Other (persistent stabbing headache) Vitals Vitals Vital Signs Date Time Temp Pulse Resp B/P (MAP) Pulse Ox O2 Delivery O2 Flow Rate FiO2 04/06/18 08:11 77 180/116 04/06/18 08:00 Room Air 04/06/18 07:38 98.1 20 96 98.1 Weight Weight [ ] Input and Output Intake and Output Intake and Output 04/06/18 07:00 Intake Total 200 ml Output Total 1 ml Balance 199 ml Intake Oral 200 ml Output Urine Total 1 ml # Voids 4 Laboratory Labs Laboratory Tests Test 04/05/18 16:10 04/06/18 03:40 Troponin I Quantitative < 0.017 ng/mL (0.000-0.055) White Blood Count 10.0 x10^3/uL (4.0-11.0) Red Blood Count 4.34 x10^6/uL (4.30-5.70) Hemoglobin 14.4 g/dL (13.0-17.5) Hematocrit 41.0 % (39.0-53.0) Mean Corpuscular Volume 95 fL (79-100) Mean Corpuscular Hemoglobin 33 pg (25-35) Mean Corpuscular Hemoglobin Concent 35 g/dL (31-37) Red Cell Distribution Width 13.5 % (11.5-14.5) Platelet Count 219 x10^3/uL (140-400) Neutrophils (%) (Auto) 56 % (31-73) Lymphocytes (%) (Auto) 34 % (24-48) Monocytes (%) (Auto) 7 % (0-9) Eosinophils (%) (Auto) 2 % (0-3) Basophils (%) (Auto) 1 % (0-3) Neutrophils # (Auto) 5.6 x10^3uL (1.8-7.7) Lymphocytes # (Auto) 3.4 x10^3/uL (1.0-4.8) Monocytes # (Auto) 0.7 x10^3/uL (0.0-1.1) Eosinophils # (Auto) 0.2 x10^3/uL (0.0-0.7) Basophils # (Auto) 0.1 x10^3/uL (0.0-0.2) Sodium Level 138 mmol/L (136-145) Potassium Level 4.0 mmol/L (3.5-5.1) Chloride Level 105 mmol/L (98-107) Carbon Dioxide Level 30 mmol/L (21-32) Anion Gap 3 (6-14) Blood Urea Nitrogen 12 mg/dL (8-26) Creatinine 0.9 mg/dL (0.7-1.3) Estimated GFR (Cockcroft-Gault) 89.0 BUN/Creatinine Ratio 13 (6-20) Glucose Level 98 mg/dL (70-99) Calcium Level 8.3 mg/dL (8.5-10.1) Total Bilirubin 0.4 mg/dL (0.2-1.0) Aspartate Amino Transf (AST/SGOT) 18 U/L (15-37) Alanine Aminotransferase (ALT/SGPT) 33 U/L (16-63) Alkaline Phosphatase 72 U/L (46-116) Total Protein 7.2 g/dL (6.4-8.2) Albumin 3.2 g/dL (3.4-5.0) Albumin/Globulin Ratio 0.8 (1.0-1.7) Triglycerides Level 60 mg/dL (0-150) Cholesterol Level 153 mg/dL (0-200) LDL Cholesterol, Calculated 108 mg/dL (0-100) VLDL Cholesterol, Calculated 12 mg/dL (0-40) Non-HDL Cholesterol Calculated 120 mg/dL (0-129) HDL Cholesterol 33 mg/dL (40-60) Cholesterol/HDL Ratio 4.6 Thyroid Stimulating Hormone (TSH) 1.273 uIU/mL (0.358-3.74) Physical Exam HEENT: Neck Supple W Full Motion Chest: Symmetric LUNGS: Clear to Auscultation Heart: S1S2, RRR Abdomen: Soft N/T Extremities: No Edema Neurology: alert, oriented, follow commands Assessment Assessment 1. GIRALDO --persistent; likely multifactorial in etiology 2. Chest pain --troponin levels not consistent with AMI --TTE without significant findings; MPI pending for ischemic evaluation 3. Accelerated HTN --remains elevated --add hydralazine TID 4. Tobaccoism --smoking cessation advised 5. HLD --mildly elevated --if MPI is non-ischemic, would allow pt 6 months to make lifestyle modifications, i.e., smoking cessation, weight management, dietary changes MEREDITH RIZO MD 04/06/18 1631: CARDIO Progress Notes Assessment Assessment Patient seen and examined. Agree with COIL PLACER's assessment and plan. Lexiscan nuclear stress test did not show any significant ischemia 2-D echo showed normal LV systolic function Agree with adding hydralazine for better blood pressure control JAMI THOMAS APRN Apr 06, 2018 10:52 MEREDITH RIZO MD Apr 06, 2018 16:31
[2018-04-06] MEDS ORDERED: REGADENOSON 0.4 MG/5 ML DISP.SYRIN. IV ONE (11:30)
[2018-04-06 11:45] VITALS: BP 156/99
--- NOTE | 2018-04-06 14:01 | RAD ---
MR#: [id number] Date of Study: 04/06/2018 Ordering Physician: JAMI THOMAS, Referring Physician: STACI RODRIGUEZ Tech: CLIF Baptiste APPROVED REPORT Test Type: Pharmacological Stress Nurse/Tech: Shavon Ybarra RN Test Indications: Chest Pain Cardiac History: Hypertension,smoker Medications: See Electronic Medical Record Medical History: See Electronic Medical Record Resting ECG: SR Resting Heart Rate: 78 bpm Resting Blood Pressure: 159/99mmHg Pretest Chest Pain: No chest pain Nurse/Tech Notes S1,S2 and lungs are diminished in the bases. Consent: The procedure was explained to the patient in lay terms. Informed consent was witnessed. Martín eout was entered into [employer]. History and Stress Test performed by RT Fartun (R) (N) Pharm. Details Pharmacologic stress testing was performed using 0.4mg per 5ml of regadenoson given intravenously ove r 7-10 seconds. Stress Symptoms Headache POST EXERCISE Reason for Termination: Infusion complete Target HR: No Max HR: 102 bpm Max Blood Pressure: 171/105mmHg Blood Pressure response to exercise: Normal blood pressure response during stress. Heart Rate response to exercise: WNL Chest Pain: No. Arrhythmia: No. INTERPRETATION Stress EKG Conclusion: Resting EKG shows a sinus rhythm with mild nonspecific T-wave changes. The stress EKG shows no significant changes from baseline. No EKG evidence of stress-induced ischemia. Imaging Protocol IMAGE PROTOCOL: Stress Tc-99m/rest Tc-99m 2 days Rest: Stress: Viability: Radiopharm.Tc99m Sestamibi [id number] Duration 13min. Img Date 04/06/2018 Inj-Img [id number]. Stress Admin Site: IV - Right HandAdministrator: MOY Chou, ARRT (R)(N) STRESS DATA End Diast. Vol.160.0mlAv. Heart Rate87.0bpm LVEDV index BSA68.0mlCardiac Output3.5L/min End Syst. Vol.65.0mlCO Index BSA8.3L/min LVESV index BSA28.0mlMyocardial Gprg209.0g Eject. Laikyqaq21.0% Stress Scores Regional WT1.00Summed WT12.00 Regional WM0.00Summed WM0.00 LV Perfusion The stress scans showed no significant defects. Wall Motion LV systolic function is normal with an ejection fraction of 59%. LV Perf. Quant 17 Seg. SSS0.00 Stress Defect Extent (% LAD)0.00Rest Defect Extent (% LAD)Rev. Defect Extent (% LAD)0.00 Stress Defect Extent (% LCX) 0.00Rest Defect Extent (% LCX)Rev. Defect Extent (% LCX)0.00 Stress Defect Extent (% RCA)0.00Rest Defect Extent (% RCA)Rev. Defect Extent (% RCA)0.00 Stress Defect Extent (% ARLETH)0.00Rest Defect Extent (% ARLETH)Rev. Defect Extent (% ARLETH)0.00 Conclusion 1. No EKG evidence of stressed induced ischemia. 2. Nuclear imaging shows no evidence of ischemia or infarct. 3. Normal left ventricular systolic function with an ejection fraction of 59%. 4. Low risk Lexiscan nuclear stress test. Signed by : Farzad Lenz MD Electronically Approved : 04/06/2018 14:00:34
[2018-04-06] MEDS: ASPIRIN ENTERIC COATED 81 MG TABLET.DR. PO SCH (14:08)
[2018-04-06] MEDS: ENOXAPARIN 40 MG/0.4 ML SYRINGE. SQ SCH ×2 (14:10→20:42)
--- NOTE | 2018-04-06 14:16 | PDOC ---
PROGRESS NOTES Chief Complaint Chief Complaint Headache, chronic, isolated on one spot of top scalp, soft tissue/nerve issue likely HTN urgency tobaccoism plan: head ct neg card consulted, MPI today low risk cycle CE, add amlodipine, lisinopril, add hydralazine today labetolol prn check lipid panel, TSH , echo done ok pt not interested in nicotine patch, willing to try to quit smoking dvt ppx dc tmr when bp better History of Present Illness History of Present Illness chronic headache, one spot on the top head, + tenderness. skin check no leasions , head CT neg bp still high ROS: no fever, chills, sob or chest pain Vitals Vitals Vital Signs Date Time Temp Pulse Resp B/P (MAP) Pulse Ox O2 Delivery O2 Flow Rate FiO2 04/06/18 14:09 73 156/99 04/06/18 11:45 97.9 20 95 Room Air 97.9 Physical Exam General: Alert, Oriented X3, Cooperative, No acute distress Heart: Regular rate (SR), Normal S1, Normal S2, No murmurs Lungs: Clear Abdomen: Normal bowel sounds, Soft, No tenderness, Other (obese) Extremities: No cyanosis, Other (1+ bilateral LE pitting edema) Skin: No breakdown, No significant lesion Labs LABS Laboratory Tests Test 04/05/18 16:10 04/06/18 03:40 Troponin I Quantitative < 0.017 ng/mL (0.000-0.055) White Blood Count 10.0 x10^3/uL (4.0-11.0) Red Blood Count 4.34 x10^6/uL (4.30-5.70) Hemoglobin 14.4 g/dL (13.0-17.5) Hematocrit 41.0 % (39.0-53.0) Mean Corpuscular Volume 95 fL (79-100) Mean Corpuscular Hemoglobin 33 pg (25-35) Mean Corpuscular Hemoglobin Concent 35 g/dL (31-37) Red Cell Distribution Width 13.5 % (11.5-14.5) Platelet Count 219 x10^3/uL (140-400) Neutrophils (%) (Auto) 56 % (31-73) Lymphocytes (%) (Auto) 34 % (24-48) Monocytes (%) (Auto) 7 % (0-9) Eosinophils (%) (Auto) 2 % (0-3) Basophils (%) (Auto) 1 % (0-3) Neutrophils # (Auto) 5.6 x10^3uL (1.8-7.7) Lymphocytes # (Auto) 3.4 x10^3/uL (1.0-4.8) Monocytes # (Auto) 0.7 x10^3/uL (0.0-1.1) Eosinophils # (Auto) 0.2 x10^3/uL (0.0-0.7) Basophils # (Auto) 0.1 x10^3/uL (0.0-0.2) Sodium Level 138 mmol/L (136-145) Potassium Level 4.0 mmol/L (3.5-5.1) Chloride Level 105 mmol/L (98-107) Carbon Dioxide Level 30 mmol/L (21-32) Anion Gap 3 (6-14) Blood Urea Nitrogen 12 mg/dL (8-26) Creatinine 0.9 mg/dL (0.7-1.3) Estimated GFR (Cockcroft-Gault) 89.0 BUN/Creatinine Ratio 13 (6-20) Glucose Level 98 mg/dL (70-99) Calcium Level 8.3 mg/dL (8.5-10.1) Total Bilirubin 0.4 mg/dL (0.2-1.0) Aspartate Amino Transf (AST/SGOT) 18 U/L (15-37) Alanine Aminotransferase (ALT/SGPT) 33 U/L (16-63) Alkaline Phosphatase 72 U/L (46-116) Total Protein 7.2 g/dL (6.4-8.2) Albumin 3.2 g/dL (3.4-5.0) Albumin/Globulin Ratio 0.8 (1.0-1.7) Triglycerides Level 60 mg/dL (0-150) Cholesterol Level 153 mg/dL (0-200) LDL Cholesterol, Calculated 108 mg/dL (0-100) VLDL Cholesterol, Calculated 12 mg/dL (0-40) Non-HDL Cholesterol Calculated 120 mg/dL (0-129) HDL Cholesterol 33 mg/dL (40-60) Cholesterol/HDL Ratio 4.6 Thyroid Stimulating Hormone (TSH) 1.273 uIU/mL (0.358-3.74) Assessment and Plan Assessmemt and Plan Problems Medical Problems: (1) Chest tightness Status: Acute (2) Headache Status: Acute (3) Hypertensive urgency Status: Acute Comment Review of Relevant I have reviewed the following items froilan (where applicable) has been applied. Labs Laboratory Tests Test 04/05/18 09:05 04/05/18 09:20 04/05/18 09:25 04/05/18 16:10 White Blood Count 9.2 x10^3/uL (4.0-11.0) Red Blood Count 4.52 x10^6/uL (4.30-5.70) Hemoglobin 14.8 g/dL (13.0-17.5) Hematocrit 42.2 % (39.0-53.0) Mean Corpuscular Volume 93 fL (79-100) Mean Corpuscular Hemoglobin 33 pg (25-35) Mean Corpuscular Hemoglobin Concent 35 g/dL (31-37) Red Cell Distribution Width 13.4 % (11.5-14.5) Platelet Count 239 x10^3/uL (140-400) Neutrophils (%) (Auto) 60 % (31-73) Lymphocytes (%) (Auto) 29 % (24-48) Monocytes (%) (Auto) 8 % (0-9) Eosinophils (%) (Auto) 2 % (0-3) Basophils (%) (Auto) 1 % (0-3) Neutrophils # (Auto) 5.5 x10^3uL (1.8-7.7) Lymphocytes # (Auto) 2.7 x10^3/uL (1.0-4.8) Monocytes # (Auto) 0.7 x10^3/uL (0.0-1.1) Eosinophils # (Auto) 0.2 x10^3/uL (0.0-0.7) Basophils # (Auto) 0.1 x10^3/uL (0.0-0.2) Sodium Level 137 mmol/L (136-145) Potassium Level 4.2 mmol/L (3.5-5.1) Chloride Level 105 mmol/L (98-107) Carbon Dioxide Level 27 mmol/L (21-32) Anion Gap 5 (6-14) Blood Urea Nitrogen 15 mg/dL (8-26) Creatinine 0.9 mg/dL (0.7-1.3) Estimated GFR (Cockcroft-Gault) 89.0 BUN/Creatinine Ratio 17 (6-20) Glucose Level 101 mg/dL (70-99) Calcium Level 8.3 mg/dL (8.5-10.1) Total Bilirubin 0.4 mg/dL (0.2-1.0) Aspartate Amino Transf (AST/SGOT) 22 U/L (15-37) Alanine Aminotransferase (ALT/SGPT) 36 U/L (16-63) Alkaline Phosphatase 79 U/L (46-116) Troponin I Quantitative < 0.017 ng/mL (0.000-0.055) < 0.017 ng/mL (0.000-0.055) Total Protein 7.1 g/dL (6.4-8.2) Albumin 3.4 g/dL (3.4-5.0) Albumin/Globulin Ratio 0.9 (1.0-1.7) Urine Opiates Screen Neg (NEG) Urine Methadone Screen Neg (NEG) Urine Barbiturates Neg (NEG) Urine Phencyclidine Screen Neg (NEG) Urine Amphetamine/Methamphetamine Neg (NEG) Urine Benzodiazepines Screen Neg (NEG) Urine Cocaine Screen Neg (NEG) Urine Cannabinoids Screen Neg (NEG) Urine Ethyl Alcohol Neg (NEG) Urine Collection Type Unknown Urine Color Yellow Urine Clarity Clear Urine pH 7.0 Urine Specific [place] 1.025 Urine Protein Negative mg/dL (NEG-TRACE) Urine Glucose (UA) Negative mg/dL (NEG) Urine Ketones (Stick) Negative mg/dL (NEG) Urine Blood Negative (NEG) Urine Nitrite Negative (NEG) Urine Bilirubin Negative (NEG) Urine Urobilinogen Dipstick 1.0 mg/dL (0.2 mg/dL) Urine Leukocyte Esterase Trace (NEG) Urine RBC 1-2 /HPF (0-2) Urine WBC 1-4 /HPF (0-4) Urine Squamous Epithelial Cells Mod /LPF Urine Bacteria Few /HPF (0-FEW) Urine Mucus Marked /LPF Test 04/06/18 03:40 White Blood Count 10.0 x10^3/uL (4.0-11.0) Red Blood Count 4.34 x10^6/uL (4.30-5.70) Hemoglobin 14.4 g/dL (13.0-17.5) Hematocrit 41.0 % (39.0-53.0) Mean Corpuscular Volume 95 fL (79-100) Mean Corpuscular Hemoglobin 33 pg (25-35) Mean Corpuscular Hemoglobin Concent 35 g/dL (31-37) Red Cell Distribution Width 13.5 % (11.5-14.5) Platelet Count 219 x10^3/uL (140-400) Neutrophils (%) (Auto) 56 % (31-73) Lymphocytes (%) (Auto) 34 % (24-48) Monocytes (%) (Auto) 7 % (0-9) Eosinophils (%) (Auto) 2 % (0-3) Basophils (%) (Auto) 1 % (0-3) Neutrophils # (Auto) 5.6 x10^3uL (1.8-7.7) Lymphocytes # (Auto) 3.4 x10^3/uL (1.0-4.8) Monocytes # (Auto) 0.7 x10^3/uL (0.0-1.1) Eosinophils # (Auto) 0.2 x10^3/uL (0.0-0.7) Basophils # (Auto) 0.1 x10^3/uL (0.0-0.2) Sodium Level 138 mmol/L (136-145) Potassium Level 4.0 mmol/L (3.5-5.1) Chloride Level 105 mmol/L (98-107) Carbon Dioxide Level 30 mmol/L (21-32) Anion Gap 3 (6-14) Blood Urea Nitrogen 12 mg/dL (8-26) Creatinine 0.9 mg/dL (0.7-1.3) Estimated GFR (Cockcroft-Gault) 89.0 BUN/Creatinine Ratio 13 (6-20) Glucose Level 98 mg/dL (70-99) Calcium Level 8.3 mg/dL (8.5-10.1) Total Bilirubin 0.4 mg/dL (0.2-1.0) Aspartate Amino Transf (AST/SGOT) 18 U/L (15-37) Alanine Aminotransferase (ALT/SGPT) 33 U/L (16-63) Alkaline Phosphatase 72 U/L (46-116) Total Protein 7.2 g/dL (6.4-8.2) Albumin 3.2 g/dL (3.4-5.0) Albumin/Globulin Ratio 0.8 (1.0-1.7) Triglycerides Level 60 mg/dL (0-150) Cholesterol Level 153 mg/dL (0-200) LDL Cholesterol, Calculated 108 mg/dL (0-100) VLDL Cholesterol, Calculated 12 mg/dL (0-40) Non-HDL Cholesterol Calculated 120 mg/dL (0-129) HDL Cholesterol 33 mg/dL (40-60) Cholesterol/HDL Ratio 4.6 Thyroid Stimulating Hormone (TSH) 1.273 uIU/mL (0.358-3.74) Laboratory Tests Test 04/05/18 16:10 04/06/18 03:40 Troponin I Quantitative < 0.017 ng/mL (0.000-0.055) White Blood Count 10.0 x10^3/uL (4.0-11.0) Red Blood Count 4.34 x10^6/uL (4.30-5.70) Hemoglobin 14.4 g/dL (13.0-17.5) Hematocrit 41.0 % (39.0-53.0) Mean Corpuscular Volume 95 fL (79-100) Mean Corpuscular Hemoglobin 33 pg (25-35) Mean Corpuscular Hemoglobin Concent 35 g/dL (31-37) Red Cell Distribution Width 13.5 % (11.5-14.5) Platelet Count 219 x10^3/uL (140-400) Neutrophils (%) (Auto) 56 % (31-73) Lymphocytes (%) (Auto) 34 % (24-48) Monocytes (%) (Auto) 7 % (0-9) Eosinophils (%) (Auto) 2 % (0-3) Basophils (%) (Auto) 1 % (0-3) Neutrophils # (Auto) 5.6 x10^3uL (1.8-7.7) Lymphocytes # (Auto) 3.4 x10^3/uL (1.0-4.8) Monocytes # (Auto) 0.7 x10^3/uL (0.0-1.1) Eosinophils # (Auto) 0.2 x10^3/uL (0.0-0.7) Basophils # (Auto) 0.1 x10^3/uL (0.0-0.2) Sodium Level 138 mmol/L (136-145) Potassium Level 4.0 mmol/L (3.5-5.1) Chloride Level 105 mmol/L (98-107) Carbon Dioxide Level 30 mmol/L (21-32) Anion Gap 3 (6-14) Blood Urea Nitrogen 12 mg/dL (8-26) Creatinine 0.9 mg/dL (0.7-1.3) Estimated GFR (Cockcroft-Gault) 89.0 BUN/Creatinine Ratio 13 (6-20) Glucose Level 98 mg/dL (70-99) Calcium Level 8.3 mg/dL (8.5-10.1) Total Bilirubin 0.4 mg/dL (0.2-1.0) Aspartate Amino Transf (AST/SGOT) 18 U/L (15-37) Alanine Aminotransferase (ALT/SGPT) 33 U/L (16-63) Alkaline Phosphatase 72 U/L (46-116) Total Protein 7.2 g/dL (6.4-8.2) Albumin 3.2 g/dL (3.4-5.0) Albumin/Globulin Ratio 0.8 (1.0-1.7) Triglycerides Level 60 mg/dL (0-150) Cholesterol Level 153 mg/dL (0-200) LDL Cholesterol, Calculated 108 mg/dL (0-100) VLDL Cholesterol, Calculated 12 mg/dL (0-40) Non-HDL Cholesterol Calculated 120 mg/dL (0-129) HDL Cholesterol 33 mg/dL (40-60) Cholesterol/HDL Ratio 4.6 Thyroid Stimulating Hormone (TSH) 1.273 uIU/mL (0.358-3.74) Medications Current Medications Morphine Sulfate (Morphine Sulfate) 2 mg 1X ONCE IV Last administered on at 10:50; Start 04/05/18 at 10:00; Stop 04/05/18 at 10:49; Status DC Ondansetron HCl (Zofran) 4 mg 1X ONCE IV Last administered on 04/05/18at 10:50; Start 04/05/18 at 10:00; Stop 04/05/18 at 10:49; Status DC Ondansetron HCl (Zofran) 4 mg PRN Q8HRS PRN IV NAUSEA/VOMITING; Start 04/05/18 at 10:15; Stop 04/06/18 at 10:14; Status DC Morphine Sulfate (Morphine Sulfate) 2 mg PRN Q2HR PRN IV PAIN; Start 04/05/18 at 10:15; Stop 04/06/18 at 10:14; Status DC Acetaminophen (Tylenol) 650 mg PRN Q4HRS PRN PO FEVER Last administered on at 20:37; Start 04/05/18 at 10:15; Stop 04/06/18 at 10:14; Status DC Labetalol HCl (Normodyne Iv Push) 10 mg 1X ONCE IVP Last administered on at 11:19; Start 04/05/18 at 11:00; Stop 04/05/18 at 11:01; Status DC Amlodipine Besylate (Norvasc) 10 mg DAILY PO Last administered on 04/06/18at 08: 11; Start 04/05/18 at 15:00 Lisinopril (Prinivil) 40 mg DAILY PO Last administered on 04/06/18at 08:11; Start 04/05/18 at 15:00 Acetaminophen (Tylenol) 650 mg PRN Q6HRS PRN PO FEVER; Start 04/05/18 at 14:45 Ondansetron HCl (Zofran) 4 mg PRN Q6HRS PRN IV NAUSEA/VOMITING; Start 04/05/18 at 14:45 Morphine Sulfate (Morphine Sulfate) 2 mg PRN Q2HR PRN IV MODERATE TO SEVERE PAIN; Start 04/05/18 at 14:45 Tramadol HCl (Ultram) 50 mg PRN Q6HRS PRN PO MILD TO MODERATE PAIN Last administered on 04/05/18at 15:40; Start 04/05/18 at 14:45 Docusate Sodium (Colace) 100 mg PRN DAILY PRN PO CONSTIPATION; Start 04/05/18 at 14:45 Labetalol HCl (Normodyne Iv Push) 20 mg PRN Q2HR PRN IVP HYPERTENSION, SEE COMMENTS Last administered on 04/05/18at 20:36; Start 04/05/18 at 14:45; Stop at 10:05; Status DC Enoxaparin Sodium (Lovenox 40mg Syringe) 40 mg Q12HR SQ Last administered on 04/06/18at 14:10; Start 04/05/18 at 15:30 Labetalol HCl (Normodyne Iv Push) 20 mg PRN Q2HR PRN IVP HYPERTENSION, SEE COMMENTS; Start 04/05/18 at 15:45 Aspirin (Ecotrin) 81 mg DAILYWBKFT PO Last administered on 04/06/18at 14:08; Start 04/05/18 at 16:00 Hydralazine HCl (Apresoline) 25 mg TID PO Last administered on 04/06/18at 14:09; Start 04/06/18 at 10:15 Regadenoson (Lexiscan) 0.4 mg 1X ONCE IV Last administered on 04/06/18at 11:47; Start 04/06/18 at 11:30; Stop 04/06/18 at 11:31; Status DC Vitals/I & O Vital Sign - Last 24 Hours 04/05/18 04/05/18 04/05/18 04/05/18 15:30 15:35 15:35 15:40 Temp 98.5 98.5 Pulse 77 78 78 Resp 18 B/P (MAP) 178/110 (132) 154/102 154/102 Pulse Ox 96 95 O2 Delivery Room Air 04/05/18 04/05/18 04/05/18 04/05/18 15:42 16:40 19:26 20:20 Temp 98.4 98.4 Pulse 84 Resp 18 B/P (MAP) 184/117 (139) Pulse Ox 96 O2 Delivery Room Air Room Air Room Air Room Air 04/05/18 04/05/18 04/05/18 04/06/18 20:36 21:10 23:55 03:31 Temp 97.6 97.7 97.6 97.7 Pulse 84 70 74 70 Resp 18 18 B/P (MAP) 184/117 149/104 (119) 146/96 (113) 147/97 (114) Pulse Ox 96 O2 Delivery Room Air Room Air 04/06/18 04/06/18 04/06/18 04/06/18 07:38 08:00 08:11 08:11 Temp 98.1 98.1 Pulse 77 77 77 Resp 20 B/P (MAP) 180/116 (137) 180/116 180/116 Pulse Ox 96 O2 Delivery Room Air Room Air 04/06/18 04/06/18 04/06/18 10:51 11:45 14:09 Temp 97.9 97.9 Pulse 77 73 73 Resp 20 B/P (MAP) 180/116 156/99 (118) 156/99 Pulse Ox 95 O2 Delivery Room Air Intake and Output 04/05/18 04/05/18 04/06/18 15:00 23:00 07:00 Intake Total 200 ml Output Total 1 ml Balance 199 ml CHANA LOGAN MD Apr 06, 2018 14:16
[2018-04-06 15:30] VITALS: BP 180/113
[2018-04-06] MEDS: traMADol 50 MG TABLET PO PRN ×2 (16:10→20:41)
[2018-04-06] MEDS: MORPHINE SULFATE 2 MG/ML VIAL. IV PRN (16:13)
[2018-04-06 19:31] VITALS: BP 136/95
[2018-04-06 23:53] VITALS: BP 147/102
[2018-04-07] MEDS: MORPHINE SULFATE 2 MG/ML VIAL. IV PRN ×2 (00:24→08:09)
[2018-04-07 03:02] VITALS: BP 139/84
[2018-04-07 07:36] VITALS: BP_SYST 116; BP_SYST 166; BP_DIAS 116
[2018-04-07] MEDS: hydrALAZINE 25 MG TABLET PO SCH (08:04)
[2018-04-07] MEDS: ASPIRIN ENTERIC COATED 81 MG TABLET.DR. PO SCH (08:04)
[2018-04-07] MEDS: LISINOPRIL 20 MG TABLET PO SCH (08:05)
[2018-04-07] MEDS: amLODIPine BESYLATE 10 MG TABLET PO SCH (08:05)
[2018-04-07] MEDS: ENOXAPARIN 40 MG/0.4 ML SYRINGE. SQ SCH (08:05)
[2018-04-07] MEDS: traMADol 50 MG TABLET PO PRN (08:09)
[2018-04-07] MEDS ORDERED: hydrALAZINE 25 MG TABLET PO ONE (10:45)
[2018-04-07 11:00] VITALS: BP 165/103
[2018-04-07 14:01] VITALS: BP 137/91
[2018-04-07] MEDS ORDERED: AMLO10TA6 PO (14:12)
[2018-04-07] MEDS ORDERED: ASPI-612 PO (14:12)
[2018-04-07] MEDS ORDERED: LISI-130 PO (14:12)
[2018-04-07] MEDS ORDERED: HYDR-2869 PO (14:12)
--- NOTE | 2018-04-07 14:13 | PDOC3 ---
Discharge Summary [facility] Date of Admission: Apr 05, 2018 Discharge Date: Apr 07, 2018 Admitting Diagnosis Headache, chronic, isolated on one spot of top scalp, soft tissue/nerve issue likely HTN urgency tobaccoism Final Diagnosis CONSULTS card Brief Hospital Course MrPatient is a 52 year old male presents the ED complaining of headache 2 months. 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 He said the headache is only one spot on head, better with shower. The headache today feels like tightness. . States he did taking Excedrin Migraine at home without relief. PT HAS HTN history, but not following PCP and not taking HTN meds. he also has chest pain today during his work, substernal, tightness, with some sob, no N/V or diaphoresis, constant, 4/10. now pain free seen in ER. no tenderness. Patient is a half a pack-a-day smoker. EKG ok, trop neg. BP >200/110 in ER. pt has no chest pain anymore, cont having the headache, which is located on one spot of left top head, + tenderness. PE no nodule or redness, but some tenderness. HEad CT neg. fu as outpt with neuro. card consulted, echo MPI ok. BP better with 3 meds, hydralazine just increased today. dc home with lisinopril, amlodipine, hydralazine. dc time 35min. General: Alert, Oriented X3, Cooperative, No acute distress Heart: Regular rate (SR), Normal S1, Normal S2, No murmurs Lungs: Clear Abdomen: Normal bowel sounds, Soft, No tenderness, Other (obese) Extremities: No cyanosis, Other (tracel LE pitting edema) Skin: No breakdown, No significant lesion Disposition home CONDITION AT DISCHARGE: Improved Scheduled Amlodipine Besylate (Amlodipine Besylate), 10 MG PO DAILY Aspirin (Aspirin Ec), 81 MG PO DAILYWBKFT Hydralazine Hcl (Hydralazine Hcl), 50 MG PO TID Lisinopril (Lisinopril), 40 MG PO DAILY CHANA LOGAN MD Apr 07, 2018 14:13
[2018-04-07 14:21] VITALS: BP 137/91
== END 2018-04-07 16:45 | disposition home or self-care (01) | DRG 305 ==
LOC: ER 08:31 → 6 SOUTH 10:04
PROVIDERS: ADMIT Internal Medicine; ATTEND Internal Medicine
DX: I16.0 Hypertensive urgency (principal); I67.4 Hypertensive encephalopathy; Z68.42 Body mass index [BMI] 45.0-49.9, adult; R51 Headache; E66.01 Morbid (severe) obesity due to excess calories; E78.5 Hyperlipidemia, unspecified; F17.210 Nicotine dependence, cigarettes, uncomplicated; G47.00 Insomnia, unspecified; G47.33 Obstructive sleep apnea (adult) (pediatric); I10 Essential (primary) hypertension; M19.90 Unspecified osteoarthritis, unspecified site; K21.9 Gastro-esophageal reflux disease without esophagitis; Z82.3 Family history of stroke; Z83.3 Family history of diabetes mellitus; Z79.899 Other long term (current) drug therapy; Z79.82 Long term (current) use of aspirin; Z88.0 Allergy status to penicillin
CPT/HCPCS: 36415; 70450; 71045; 78452; 80053; 80061; 80307; 81001; 84443; 84484; 85025; 93005; 93017; 93306; 96374; 96375; 99406; A9500; J1650; J2270; J2405; J2785; J3490; G0479